=== PATIENT | male | born 1960 | race Caucasian/White ===

== ENCOUNTER 2018-06-27 09:27 | Day surgery (SDC) | payer OTHER ==
[~2018-06-27] VITALS: Ht 180.3 cm; Wt 112.0 kg
[2018-06-27 10:00] VITALS: BP 148/74
[2018-06-27 13:32] VITALS: BP 133/66
== END 2018-06-27 13:15 | disposition home or self-care (01) ==
LOC: DS 09:27 → OR 11:00 → DS 11:00 → OR 12:00 → DS 13:15
DX: K43.6 Other and unspecified ventral hernia with obstruction, without gangrene (principal); E66.9 Obesity, unspecified; F17.210 Nicotine dependence, cigarettes, uncomplicated; Z90.49 Acquired absence of other specified parts of digestive tract; Z98.890 Other specified postprocedural states; Z79.2 Long term (current) use of antibiotics; Z79.899 Other long term (current) drug therapy; Z88.0 Allergy status to penicillin; Z88.5 Allergy status to narcotic agent
CPT/HCPCS: C1781; J0330; J0690; J1170; J2250; J2405; J2704; J2710; J3010; J3490; J7120